=== PATIENT | female | born 1975 ===

== ENCOUNTER 2023-06-20 05:23 | Day surgery (SDC) | payer OTHER ==
[2023-06-14 10:25] LABS: PH,URINE 6.5 (5.0-8.0); URINE APPEARANCE Clear; URINE BILIRRUBIN Negative (NEGATIVE); URINE BLOOD Negative; URINE COLOR Yellow; URINE GLUCOSE Negative (NEGATIVE); URINE LEUKOCYTE Negative; URINE NITRATE Negative; URINE PROTEIN Negative (NEGATIVE); URINE UROBILINOGEN 0.2 E.U./dl
[2023-06-14 10:27] LABS: URINE BACTERIA 1603.9 uL (0.0-1933); URINE EPITHELIAL CELLS 9.8 uL (0.0-38.8); URINE RBC 5.1 uL (0.0-20.8); URINE WBC 36.4 uL (0.0-23.2)
[2023-06-14 10:32] LABS: HEMATOCRIT 36.1 % (36.0-45.00); MEAN CORPUSCULAR HGB CONC 32.8 g/dl (32.0-36.0); PLATELET COUNT 351 K/uL (150-450); RED CELL DISTRIBUTION WIDTH 14.9 % (11.5-14.5)
[2023-06-14 10:37] LABS: HEMOGLOBIN 11.8 g/dL (12.0-15.00); MEAN CORPUSCULAR HEMOGLOBIN 26.8 pg (27.00-32.0)
[2023-06-14 10:40] LABS: INR 0.99; PARTIAL THROMBOPLASTIN TIME 29.5 SECONDS (22.0-34.0); PROTHROMBIN TIME 10.4 SECONDS (9.0-11.5)
[2023-06-14 11:16] LABS: ALBUMIN 3.8 gm/dL (3.4-5.0); BILIRUBIN TOTAL 0.39 mg/dL (0.3-1.2); CALCIUM 9.2 mg/dL (8.5-10.1); CREATININE SERUM 0.56 mg/dL (0.55-1.02); GFR 116.54; GLOBULINA 3.7 G/DL (2.4-3.5); POTASSIUM 4.61 mEq/L (3.5-5.1); TOTAL PROTEIN 7.5 gm/dL (6.4-8.2)
[~2023-06-20] VITALS: Ht 157.5 cm; Wt 63.5 kg
[2023-06-20] MEDS ORDERED: METRONIDAZOLE/SODIUM CHLORIDE 500 MG/100 ML PIGGYBACK IV ONE (09:00)
[2023-06-20] MEDS ORDERED: CEFTRIAXONE SODIUM 2,000 MG VIAL ONE (09:00)
[2023-06-20] MEDS ORDERED: LIDOCAINE HCL 1%/Epi 20ML VIAL IJ ONE (09:32)
[2023-06-20] MEDS ORDERED: POVIDONE-IODINE 118 ML BOTT TOP ONE ×2 (09:32→09:45)
[2023-06-20] MEDS ORDERED: BUPIVACAINE HCL/PF 0.5% 30ML ML ONE (09:32)
[2023-06-20] MEDS ORDERED: HEMOSTATIC MATRIX 1 KIT KIT TOP ONE ×2 (09:33→09:45)
[2023-06-20] MEDS ORDERED: DIBUCAINE 15 GM OINT..GM. TUBE ONE (09:33)
[2023-06-20] MEDS ORDERED: CEFTRIAXONE SODIUM 2,000 MG VIAL IV SCH (09:45)
[2023-06-20] MEDS ORDERED: DIBUCAINE 15 GM OINT..GM. TUBE RECTAL ONE (09:45)
[2023-06-20] MEDS ORDERED: METRONIDAZOLE/SODIUM CHLORIDE 500 MG/100 ML PIGGYBACK IV SCH (09:45)
[2023-06-20] MEDS ORDERED: BUPIVACAINE LIPOSOME/PF 266 MG/20 ML VIAL IJ ONE ×2 (09:53→10:15)
[2023-06-20] MEDS ORDERED: PERCOCET 5-3251 EACH PO (11:12)
[2023-06-20] MEDS ORDERED: NEURONTIN300 MG PO (11:12)
[2023-06-20] MEDS ORDERED: CELECOXIB200 MG PO (11:12)
== END 2023-06-20 17:00 | disposition home or self-care (01) ==
LOC: CIR.AMB 05:23
PROVIDERS: ATTEND Surgery
DX: K64.2 Third degree hemorrhoids (principal); K64.8 Other hemorrhoids; K64.4 Residual hemorrhoidal skin tags; N81.6 Rectocele; K62.5 Hemorrhage of anus and rectum